=== PATIENT | male | born 1975 | race Caucasian/White ===

== ENCOUNTER 2018-11-16 02:49 | Emergency (ER) | payer BC ==
[2018-11-16] MEDS ORDERED: MORPHINE SULFATE 10 MG/ML INJ IV ONE (03:04)
[2018-11-16] MEDS ORDERED: ASPIRIN 81 MG TABLET, CHEWABLE PO ONE (03:04)
[2018-11-16] MEDS ORDERED: CLOPIDOGREL BISULFATE 300 MG TABLET PO ONE (03:04)
[2018-11-16] MEDS ORDERED: TENECTEPLASE INJ 50 MG KIT IV ONE (03:04)
[2018-11-16] MEDS ORDERED: LABETALOL HCL INJ 20 MG/4 ML DISP.SYRIN IV ONE (03:10)
--- NOTE | 2018-11-16 03:10 | ER Document Report ---
ED Cardiac - General Chief Complaint: Chest Pain Stated Complaint: CHEST PAIN Time Seen by Provider: 11/16/18 03:02 - HPI Notes: This is a 43-year-old gentleman which is presents with a complaint of substernal chest pain that woke him up from sleep around 2:00. The patient describes his pain as aching and pressure nonradiating. Associate symptoms include dyspnea and nausea. He denies any recent illness. Describes symptoms as moderate to severe. There are no obvious aggravating or relieving factors. - Related Data Allergies/Adverse Reactions: tramadol Allergy (Verified 11/16/18 03:11) Past Medical History - Social History Smoking Status: Never Smoker Frequency of alcohol use: Occasional Drug Abuse: None Family History: Hypertension Review of Systems - Review of Systems Cardiovascular: Chest pain Respiratory: denies: Cough Gastrointestinal: denies: Abdominal pain, Diarrhea -: Yes All other systems reviewed and negative Physical Exam - Vital signs Vitals: Resp 19 11/16/18 03:02 - General General appearance: Appears well, Alert - Respiratory Respiratory status: No respiratory distress Chest status: Nontender Breath sounds: Normal Chest palpation: Normal - Cardiovascular Rhythm: Regular Heart sounds: Normal auscultation Murmur: No - Abdominal Inspection: Normal Distension: No distension Bowel sounds: Normal Tenderness: Nontender Organomegaly: No organomegaly - Back Back: Normal, Nontender - Neurological Neuro grossly intact: Yes Cognition: Normal Orientation: AAOx4 [place] Coma Scale Eye Opening: Spontaneous [place] Coma Scale Verbal: Oriented [place] Coma Scale Motor: Obeys Commands [place] Coma Scale Total: 15 Speech: Normal Motor strength normal: LUE, RUE, LLE, RLE Sensory: Normal - Psychological Associated symptoms: Normal affect, Normal mood - Skin Skin Temperature: Warm Skin Moisture: Dry Skin Color: Normal Course - Re-evaluation Re-evalutation: 11/16/18 03:13 Clinical picture suggestive of acute anterolateral STEMI. EKG shows ST elevations in V2 through V6. Repeat EKG also shows shows anterolateral STEMI. Code STEMI initiated immediately. Patient has no contraindications to lytics. Will get blood pressure control first and will give him Lasix given the distance to be seen yesterday. Call placed to [facility]. Awaiting callback. 11/16/18 03:20 Patient still has chest pain. Nitroglycerin administered. Patient states he can take morphine. Labetalol given for blood pressure. Blood pressure is still elevated. Will repeat in 5 minutes. Holding off on thrombolytics at this time for better blood pressure management. 11/16/18 03:28 Blood pressure is now 163/97. Patient's care discussed with Dr. Yoder, critical care cns advised him. He recommends no TNKase given initial blood pressure of 180s over 120s. Advises that there is a relative contraindication to thrombolytics. 11/16/18 03:34 Patient still has chest pain. Will start IV nitro drip. We will also start hep cosme drip as per recommendation from Dr. Yoder. 11/16/18 04:02 Patient reevaluated. Pain is improved. Transport team is here. He is stable for transfer. - Vital Signs Vital signs: Temp Pulse Resp BP Pulse Ox 98.0 F 74 20 153/105 H 99 11/16/18 03:06 11/16/18 03:06 11/16/18 03:50 11/16/18 03:51 11/16/18 03:51 - Laboratory Result Diagrams: 11/16/18 03:00 11/16/18 03:00 Laboratory results interpreted by me: 11/16/18 03:00 Glucose 126 H Creatine Kinase 176 H - EKG Interpretation by Or EKG shows normal: Sinus rhythm Rate: Normal - Anterolateral ST elevation. Critical Care Note - Critical Care Note Total time excluding time spent on procedures (mins): 60 Comments: Critical care time for evaluation and management of acute coronary syndrome. Discharge - Discharge Clinical Impression: Acute HI Qualifiers: Myocardial infarction type: ST elevation myocardial infarction Involved coronary artery: unspecified coronary artery Qualified Code(s): I21.3 - ST elevation (STEMI) myocardial infarction of unspecified site Condition: Stable Disposition: Tertiary-Other ED Thrombolytic Exclus/Inclus. - Potential Diagnosis Potential Diagnosis: Acute HI - Inclusion Criteria (Acute HI) -: Date & time of symptom onset less than 12 hours -----: Yes : HAD AT LEAST ONE OF THE FOLLOWING ECG CHANGES -: At least 1mm of ST elevation in at least 2 anatomically contiguous leads -----: Yes -: New or presumably new left bundle branch block -----: No - Inclusion Criteria (Pulmonary Embolism) -: Clinical diagnosis confirmed by pulmonary angiography or perfusion lung scan - Exclusion Criteria : ABSOLUTE CRITERIA -: Active internal bleeding -----: No -: History of cerebrovascular accident -----: No -: Recent intracranial or intraspinal surgery or trauma -----: No -: Intracranial neoplasm, arteriovenous malformation, or aneurysm -----: No -: Known bleeding diathesis -----: No -: Severe uncontrolled hypertension -----: Yes -: Suspected aortic dissection -----: No : RELATIVE CRITERIA -: Recent major surgery, e.g. coronary artery bypass graft, obstetrical delivery, organ biopsy -----: No -: Previous puncture of noncompressible vessels -----: No -: Cerebrovascular disease -----: No -: Recent gastrointestinal or genitourinary bleeding -----: No -: Recent rauma (1-4 weeks) -----: No -: Hypertension: systolic BP greter than or equal to 180 mm Hg and/or diastolic BP greater than or equal to 110 mm Hg -----: Yes -: High likelihood of left heart thrombus, e.g. mitral stenosis with atrial fibrillation -----: No -: Acute pericarditis -----: No -: Subacute bacterial endocarditis -----: No -: Hemostatic defects including those secondary to severe hepatic or renal disease -----: No -: Sever hepatic or renal dysfunction -----: No -: -----: No -: Diabetic hemorrhagic retinopathy or other hemorrhagic ophthalmic conditions -----: No -: Septic thrombophlebitis or occluded AV cannula at a seriously infected site -----: No -: Advanced age -----: No -: Patients currently receiving oral anticoagulants, e.g., warfarin sodium (INR greater than 2-3) -----: No -: Any other condition in which bleeding constitutes a significant hazard or would be particularly difficult to manage because of its location -----: No -: Prolonged (greater than 10 minutes) and potentially traumatic CPR -----: No -: Malignancy with metastasis -----: No
[2018-11-16 03:13] LABS: HEMATOCRIT 46.7 % (37.9-51.0); HEMOGLOBIN 15.8 g/dL (13.5-17.0); MEAN CORPUSCULAR HEMOGLOBIN 30.2 pg (27.0-33.4); MEAN CORPUSCULAR HGB CONC 33.9 g/dL (32.0-36.0); MEAN CORPUSCULAR VOLUME 89 fl (80-97); PLATELET COUNT 268 10^3/uL (150-450); RED BLOOD COUNT 5.24 10^6/uL (4.35-5.55); RED CELL DISTRIBUTION WIDTH 12.9 % (11.5-14.0); WHITE BLOOD COUNT 10.3 10^3/uL (4.0-10.5)
[2018-11-16] MEDS ORDERED: HEPARIN SOD (PORCINE) 1,000 UNIT/ML 10 ML VIAL ONE (03:14)
[2018-11-16] MEDS ORDERED: ONDANSETRON HCL INJ/PF 4 MG/2 ML SDV ONE (03:14)
[2018-11-16] MEDS ORDERED: HEPARIN SOD (PORCINE) 1,000 UNIT/ML 1 ML VIAL IV ONE (03:15)
[2018-11-16] MEDS: NITROGLYCERIN 0.4 MG/TAB 25 TAB/BOTTLE SL PRN ×3 (03:19→03:29)
[2018-11-16 03:27] LABS: INTERNATIONAL RATION (INR) 0.98
[2018-11-16 03:28] LABS: PARTIAL THROMBOPLASTIN TIME 27.5 SEC (23.5-35.8)
[2018-11-16] MEDS ORDERED: NITROGLYCERIN/D5W 50 MG/250 ML RTUINJ IV PRN (03:35)
[2018-11-16] MEDS ORDERED: NITROGLYCERIN/D5W 50 MG/250 ML RTUINJ IV ONE (03:35)
[2018-11-16] MEDS ORDERED: HEPARIN SODIUM,PORCINE/D5W 25,000 UNIT/250 ML RTUINJ IV ONE (03:38)
[2018-11-16] MEDS ORDERED: HEPARIN SODIUM,PORCINE/D5W 25,000 UNIT/250 ML RTUINJ IV PRN (03:41)
[2018-11-16 03:52] LABS: ANION GAP 11 (5-19); BLOOD UREA NITROGEN 20 mg/dL (7-20); CALCIUM 9.7 mg/dL (8.4-10.2); CARBON DIOXIDE 25 mmol/L (22-30); CHLORIDE 103 mmol/L (98-107); CREATINE KINASE 176 U/L (55-170); GLUCOSE 126 mg/dL (75-110); POTASSIUM 3.8 mmol/L (3.6-5.0)
[2018-11-16 03:56] VITALS: BP 153/105
[2018-11-16 04:05] LABS: CREATINE KINASE MB 1.17 ng/mL (<4.55)
[2018-11-16 04:07] LABS: TROPONIN I < 0.012 ng/mL
--- NOTE | 2018-11-16 04:11 | RADIOLOGY REPORT (SQ) ---
CLINICAL HISTORY: Chest Pain r/o [place] COMPARISON: None. TECHNIQUE: XR CHEST 1 VIEW 11/16/2018 3:05 AM CDT FINDINGS: The heart is mildly enlarged. Lungs are clear without consolidation, atelectasis, mass or edema. There is no pleural effusion. There is no pneumothorax. There are no acute osseous findings. Defibrillator paddles overlie the central chest. IMPRESSION: Clear lungs.
[2018-11-16] MEDS ORDERED: NITROGLYCERIN 0.4 MG/TAB 25 TAB/BOTTLE ONE (05:00)
[2018-11-16] MEDS ORDERED: CLOPIDOGREL BISULFATE 300 MG TABLET ONE (05:00)
[2018-11-16] MEDS ORDERED: ASPIRIN 81 MG TABLET, CHEWABLE ONE (05:00)
--- NOTE | 2018-11-16 08:52 | EKG REPORT ---
SEVERITY:- ABNORMAL ECG - SINUS RHYTHM PROBABLE LEFT ATRIAL ABNORMALITY ST ELEVATION, CONSIDER ANTEROLATERAL INJURY : Confirmed by: Marie Thomson MD 16-Nov-2018 08:51:50
--- NOTE | 2018-11-16 08:53 | EKG REPORT ---
SEVERITY:- BORDERLINE ECG - SINUS RHYTHM PROBABLE LEFT ATRIAL ABNORMALITY BORDERLINE RIGHT AXIS DEVIATION BORDERLINE INFERIOR Q WAVES ST ELEV, PROBABLE NORMAL : PROBABLE ACUTE INJURY : Confirmed by: Marie Thomson MD 16-Nov-2018 08:52:34
== END 2018-11-16 04:06 | disposition short-term general hospital (02) ==
LOC: ER 02:49
DX: I21.3 ST elevation (STEMI) myocardial infarction of unspecified site (principal); R07.9 Chest pain, unspecified; R11.0 Nausea; Z88.6 Allergy status to analgesic agent
CPT/HCPCS: 93005; 96376; 99291; 96374; 96375; 36415; 82553; 82550; 85027; 85610; 85730; 80048; 84484; 71045; 93010; J3490 ×3; J1644 ×2; J2270; J2405

== ENCOUNTER 2019-02-27 19:44 | Observation (INO) | payer BC ==
[2019-02-27] MEDS ORDERED: ASPIRIN 81 MG TABLET, CHEWABLE PO ONE (20:08)
--- NOTE | 2019-02-27 20:10 | ER Document Report ---
ED Medical Screen (RME) - General Chief Complaint: Chest Pain Stated Complaint: CHEST PAINS Time Seen by Provider: 02/27/19 20:05 Primary Care Provider: JASKARAN FRANCE FNP-C [Primary Care Provider] - Follow up as needed - [facility] Notes: 02/27/19 20:09 Patient is a 43-year-old male with history of coronary disease with heart attack in November and 3 stents placed, hypertension who presents complaining of left- sided chest pain that is been relatively constant for the past 2 to 3 days. Patient states that he does feel fatigued with this as well. No fever or shortness of breath. No abdominal pain. Pt is on Brilinta I have treated and performed a rapid initial assessment of this patient. A comprehensive ED assessment and evaluation of the patient, analysis of test results and completion of medical decision making process will be conducted by additional ED providers. PHYSICAL EXAMINATION: GENERAL: Well-appearing, well-nourished and in no acute distress. A&Ox4. Answers questions appropriately. Heart: RRR Lungs: CTAB Extremities: No edema. - Related Data Allergies/Adverse Reactions: tramadol Allergy (Verified 02/27/19 20:03) Home Medications: Berlinta, lisinopril, atovastatin, metoprolol, ambian, hydrocodone Past Medical History - Past Medical History Cardiac Medical History: Reports: Hx Hypertension Physical Exam - Vital signs Vitals: Temp Pulse Resp BP Pulse Ox 97.6 F 60 16 130/90 H 97 02/27/19 19:58 02/27/19 19:58 02/27/19 19:58 02/27/19 19:58 02/27/19 19:58 Course - Vital Signs Vital signs: Temp Pulse Resp BP Pulse Ox 97.6 F 60 16 130/90 H 97 02/27/19 19:58 02/27/19 19:58 02/27/19 19:58 02/27/19 19:58 02/27/19 19:58 Doctor's Discharge - Discharge Referrals: JASKARAN FRANCE FNP-C [Primary Care Provider] - Follow up as needed
[2019-02-27 20:33] LABS: ABSOLUTE BASOPHILS # (AUTO) 0.1 10^3/uL (0.0-0.2); ABSOLUTE EOSINOPHILS # (AUTO) 0.2 10^3/uL (0.0-0.6); ABSOLUTE LYMPHOCYTES (AUTO) 3.2 10^3/uL (0.5-4.7); ABSOLUTE MONOCYTES (AUTO) 0.9 10^3/uL (0.1-1.4); ABSOLUTE NEUT (AUTO) 5.6 10^3/uL (1.7-8.2); BASOPHILS % (AUTO) 1.1 % (0-2); EOSINOPHILS % (AUTO) 2.4 % (0-6); HEMATOCRIT 43.8 % (37.9-51.0); HEMOGLOBIN 15.1 g/dL (13.5-17.0); LYMPHOCYTES % (AUTO) 32.1 % (13-45); MEAN CORPUSCULAR HEMOGLOBIN 30.7 pg (27.0-33.4); MEAN CORPUSCULAR HGB CONC 34.4 g/dL (32.0-36.0); MEAN CORPUSCULAR VOLUME 89 fl (80-97); MONOCYTES % (AUTO) 8.9 % (3-13); PLATELET COUNT 226 10^3/uL (150-450); RED BLOOD COUNT 4.91 10^6/uL (4.35-5.55); SEGMENTED NEUTROPHILS % (AUTO) 55.5 % (42-78); TOTAL CELLS COUNTED % (AUTO) 100 %; WHITE BLOOD COUNT 10.1 10^3/uL (4.0-10.5)
[2019-02-27 20:48] LABS: INTERNATIONAL RATION (INR) 1.01; PROTHROMBIN TIME 13.3 SEC (11.4-15.4)
[2019-02-27 20:52] LABS: ALBUMIN 4.3 g/dL (3.5-5.0); ALKALINE PHOSPHATASE 105 U/L (38-126); ANION GAP 8 (5-19); ASPARTATE AMINO TRANSFERASE 40 U/L (17-59); BILIRUBIN,DIRECT 0.2 mg/dL (0.0-0.4); BILIRUBIN,TOTAL 1.1 mg/dL (0.2-1.3); BLOOD UREA NITROGEN 10 mg/dL (7-20); CARBON DIOXIDE 28 mmol/L (22-30); CHLORIDE 102 mmol/L (98-107); GLUCOSE 85 mg/dL (75-110)
[2019-02-27 21:04] LABS: NT PRO BNP 298 pg/mL (<125)
[2019-02-27 21:08] LABS: TROPONIN I < 0.012 ng/mL
--- NOTE | 2019-02-27 21:33 | EKG REPORT ---
SEVERITY:- ABNORMAL ECG - SINUS RHYTHM LEFT POSTERIOR FASCICULAR BLOCK ANTERIOR INFARCT, AGE INDETERMINATE : Confirmed by: Marie Thomson MD 27-Feb-2019 21:33:02
--- NOTE | 2019-02-27 21:56 | ER Document Report ---
ED General - General Chief Complaint: Chest Pain Stated Complaint: CHEST PAINS Time Seen by Provider: 02/27/19 20:05 Primary Care Provider: JASKARAN FRANCE FNP-C [Primary Care Provider] - Follow up as needed Notes: 43-year-old male presents to the ED complaining of increasing fatigue for the past 7 to 10 days and now intermittent left-sided sharp chest pain for the past 5 to 6 days. He states it does not get any better or worse with exertion, he cannot identify anything that specifically changes it. States that it feels somewhat different than when he had a STEMI back in November but also states that the pain was somewhat sharp back then. Patient did have 3 stents placed in November at [facility]. States he is taking his medications as directed including Brilinta, metoprolol, lisinopril and aspirin. Sees Dr. Corbin as an outpatient. Denies any radiation, shortness of breath, nausea or diaphoresis. - Related Data Allergies/Adverse Reactions: tramadol Allergy (Verified 02/27/19 20:03) Home Medications: Berlinta, lisinopril, atovastatin, metoprolol, ambian, hydrocodone Past Medical History - General Information source: Patient - Social History Smoking Status: Never Smoker Frequency of alcohol use: None Drug Abuse: None Family History: CAD - Father with history of ME., Hypertension Patient has suicidal ideation: No Patient has homicidal ideation: No - Past Medical History Cardiac Medical History: Reports: Hx Hypertension Past Surgical History: Reports: Hx Cardiac Catheterization Review of Systems - Review of Systems Constitutional: See HPI, Other - Fatigue. EENT: No symptoms reported Cardiovascular: See HPI, Chest pain Respiratory: No symptoms reported Gastrointestinal: No symptoms reported -: Yes All other systems reviewed and negative Physical Exam - Vital signs Vitals: Temp Pulse Resp BP Pulse Ox 97.6 F 60 16 130/90 H 97 02/27/19 19:58 02/27/19 19:58 02/27/19 19:58 02/27/19 19:58 02/27/19 19:58 Interpretation: Normal - Notes Notes: GENERAL: Alert, interacts well. No acute distress. HEAD: Normocephalic, atraumatic EYES: Pupils equal, round and reactive to light, extraocular movements intact. ENT: Oral mucosa moist, tongue midline. NECK: Full range of motion, supple, trachea midline. LUNGS: Clear to auscultation bilaterally, no wheezes, rales or rhonchi, no respiratory distress. HEART: Regular rate and rhythm, no murmurs, gallops, rubs. No rash, no sternal tenderness palpation. ABDOMEN: Soft, nontender, nondistended, bowel sounds present in all 4 quadrants. EXTREMITIES: Moves all 4 extremities spontaneously, no edema, radial and dorsalis pedis pulses 2/4 bilaterally. No cyanosis. NEUROLOGICAL: Alert and oriented x3, normal speech. PSYCH: Normal mood, normal affect. SKIN: Warm, Dry, normal turgor, no rashes or lesions noted. Course - Re-evaluation Re-evalutation: 02/28/19 00:00 CBC unremarkable, coags normal, CMP unremarkable, proBNP minimally elevated 298, troponin negative x2, chest x-ray shows no explanation for the pain, EKG does not show STEMI though it does show T wave inversions. Discussed the patient with Dr. Corbin who is his primary care transition advisor. States that he would like the patient admitted to the hospital and placed on a PPI, beta-blockers and nitrates. States that if his pain continues overnight he may need to be transferred in the morning. States he will consult on the patient in the morning. 02/28/19 00:[address] Street who agrees to admit the patient to the telemetry care unit in observation status. Discussed plan with patient and who the initially stated she thinks this may be anxiety. I discussed with the patient and the that there is no test to look for anxiety and that his careers adviser is recommending that he stay, be started on a PPI, nitrates and beta-blockers because we cannot rule out unstable angina and if he continues to have pain he may need a cardiac catheterization. Patient states that he would like to be discharged home, he is aware that he is at risk for missing a heart attack, having a delay in diagnosis or treatment due to going home rather than staying for continued testing. Patient is aware that he may return to the emergency department at any time for further testing and treatment. Patient is being discharged with PPI and recommendation to return he change his mind or follow-up with cardiology as soon as possible. - Vital Signs Vital signs: Temp Pulse Resp BP Pulse Ox 97.6 F 60 19 108/69 95 02/27/19 19:58 02/27/19 19:58 02/28/19 00:01 02/28/19 00:01 02/28/19 00:01 - Laboratory Result Diagrams: 02/27/19 20:21 02/27/19 20:21 Laboratory results interpreted by me: 02/27/19 20:21 NT-Pro-B Natriuret Pep 298 H - EKG Interpretation by Me Additional EKG results interpreted by me: 02/27/19 21:56 EKG shows sinus bradycardia at a rate of 57, poor R wave progression, posterior fascicular block, no ST segment elevations or depressions, T wave inverted in V1 through V5, normalizes in V6 per my interpretation. Discharge - Discharge Clinical Impression: Chest pain with high risk for cardiac etiology Condition: Stable Disposition: HOME, SELF-CARE Additional Instructions: Chest Pain of Unclear Cause The exact cause of your chest pain isn't clear. Further testing may be required to find the source of the pain. I discussed your case with your careers adviser Dr. Corbin this evening. He recommended that you be admitted and be started on an antacid medication known as a PPI. This is a medication like Protonix. He stated that he would follow- up with you in the morning and if you are still having chest pain you might end up needing to be transferred to [facility] for cardiac catheterization. After discussing the benefits of being admitted and the risks of being discharged home such as the risk of missing a heart attack, missing unstable angina, developing heart failure due to delay in treatment or even dying due to the delay in treatment but also discussing the fact that I do not know exactly what is causing her pain and I cannot tell you for certain that it is coming from your heart you have chosen to be discharged to home. You are welcome to return to the emergency department at any time to finish her testing and possibly be admitted. You should call Dr. Corbin's office first thing Saturday to arrange a follow-up appointment as an outpatient. You should call the physician immediately if the pain radiates to the shoulder, jaw or arms; if you start to run a fever or develop a cough; or if you develop shortness of breath, or other new or alarming symptoms. Prescriptions: Pantoprazole Sodium [Protonix] 40 mg PO DAILY #14 tablet. Referrals: FOSSETT,JASKARAN, RECEIVING SPECIALIST-C [Primary Care Provider] - Follow up as needed JARETH CORBIN MD [ACTIVE STAFF] - 03/02/19
--- NOTE | 2019-02-27 21:58 | RADIOLOGY REPORT (SQ) ---
EXAM DESCRIPTION: XR CHEST 2 VIEWS COMPLETED DATE/TME: 02/27/2019 20:08 CLINICAL HISTORY: 43 years, Male, CP COMPARISON: None. NUMBER OF VIEWS: 2 TECHNIQUE: Frontal and lateral LIMITATIONS: None. FINDINGS: Cardiomediastinal silhouette is top normal. Lungs are grossly clear with mild chronic change. Visualized bones are within normal limits for age IMPRESSION: No active disease copyright 2011 [employer]- All Rights Reserved
[2019-02-27] MEDS ORDERED: NITROGLYCERIN 0.4 MG/TAB 25 TAB/BOTTLE SL PRN (22:26)
[2019-02-28] MEDS ORDERED: PANTOPRAZOLE SODIUM 40 MG VIAL IV ONE (00:01)
[2019-02-28] MEDS ORDERED: MAG HYDROX/AL HYDROX/SIMETH SUSP 30 ML UDCUP PO PRN (00:07)
[2019-02-28] MEDS ORDERED: ACETAMINOPHEN 325 MG TABLET PO PRN (00:07)
[2019-02-28] MEDS ORDERED: ATORVASTATIN CALCIUM 80 MG TABLET PO ONE (01:00)
[2019-02-28 01:17] VITALS: BP 129/84
[2019-02-28] MEDS ORDERED: FAMOTIDINE 20 MG TABLET PO SCH (10:00)
[2019-02-28] MEDS ORDERED: ATORVASTATIN CALCIUM 80 MG TABLET PO SCH (22:00)
== END 2019-02-28 01:25 | disposition home or self-care (01) ==
LOC: ER 19:44 → EH 02-28 00:07 → ER 02-28 01:25
PROVIDERS: ADMIT Internal Medicine; ATTEND Emergency Medicine
DX: R07.9 Chest pain, unspecified (principal); R53.83 Other fatigue; I10 Essential (primary) hypertension; R00.1 Bradycardia, unspecified; I44.5 Left posterior fascicular block; I25.10 Atherosclerotic heart disease of native coronary artery without angina pectoris; I25.2 Old myocardial infarction; Z95.5 Presence of coronary angioplasty implant and graft; Z79.899 Other long term (current) drug therapy; Z79.82 Long term (current) use of aspirin; Z82.49 Family history of ischemic heart disease and other diseases of the circulatory system
CPT/HCPCS: 93005; 99285; 96374; 36415; 83690; 85025; 85610; 80053; 84484; 83880; 71046; 93010; C9113